=== PATIENT | male | born 1945 | race Caucasian/White ===

== ENCOUNTER 2018-10-03 12:44 | Emergency (ER) | payer MEDICARE, BC ==
[~2018-10-03] VITALS: Ht 162.6 cm; Wt 75.0 kg
[~2018-10-03 12:44] MED LIST: ASPIRIN ADULT L81 MG PO; ASPIRIN81 MG PO; BENADRYL25 MG PO; CALCIUM 600 +600 MG PO; EXFORGE1 TA3 PO; HYDROCHLOROT25 MG PO; MOBIC7.5 MG PO; MULTIVIT/MIN PO; PENICILLN VK500 MG PO; PRILOSEC40 MG PO; QUININE PO; TRAMADOL HCL100 MG PO; TRAMADOL HCL50 MG PO; TRAZODONE50 MG PO
[2018-10-03 14:05] LABS: HEMATOCRIT 38.3 % (39.0-50.0); HEMOGLOBIN 13.3 g/dl (14.0-18.0); IMMATURE GRANULOCYTES 0.7 % (0.0-5.0); MEAN CELL VOLUME 90.5 fL CALC (80.0-100.0); MEAN CORPUSCULAR HGB 31.4 pG CALC (26.0-32.0); MEAN CORPUSCULAR HGB CONC 34.7 g/L CALC (32.0-36.0); NEUT# 6.34 thou/uL (1.82-7.42); RED BLOOD COUNT 4.23 mill/uL (4.70-6.10); RED CELL DISTRI WIDTH 13.2 % (11.5-15.5)
[2018-10-03] MEDS ORDERED: MOTRIN400 MG PO (14:50)
[2018-10-03 14:51] LABS: ALBUMIN 4.1 g/dL (3.2-5.0); ALKALINE PHOSPHATASE 101 u/l (38-126); ANION GAP 12 (6-22 (CALC)); BILIRUBIN, TOTAL 0.5 mg/dL (0.0-1.4); BUN 29 mg/dL (8-23); BUN/CREATININE RATIO 30 (12-20 (CALC)); CARBON DIOXIDE 25 mmol/l (22-30); CHLORIDE 103 mmol/l (95-108); GFR > 60 ML/MIN (>=60 (CALC)); GFR FOR AFR.AMER. > 60 ML/MIN (>=60 (CALC)); POTASSIUM 3.4 mmol/l (3.5-5.1); SGOT/AST 31 u/l (19-48); SODIUM 137 mmol/l (137-146); TOTAL PROTEIN 6.6 g/dL (6.3-8.2)
[2018-10-03 14:52] VITALS: BP 195/84
== END 2018-10-03 14:58 | disposition home or self-care (01) ==
LOC: ED 12:44
PROVIDERS: Family Medicine
PROC: 2W38X1Z Immobilization of Right Upper Extremity using Splint (ICD-10-PCS; principal; 2018-10-03)
DX: S42.201A Unspecified fracture of upper end of right humerus, initial encounter for closed fracture (principal); I10 Essential (primary) hypertension; M97.31XA Periprosthetic fracture around internal prosthetic right shoulder joint, initial encounter; X58.XXXA Exposure to other specified factors, initial encounter; Z96.611 Presence of right artificial shoulder joint